=== PATIENT | female | born 1990 | race Caucasian/White ===

== ENCOUNTER 2021-02-21 03:46 | Emergency (ER) | payer SELFPAY ==
[2021-02-21] MEDS ORDERED: Acetaminophen 500 MG TAB ONE (04:08)
[2021-02-21] MEDS ORDERED: Boostrix 0.5 ML (Tdap) VIAL ONE (04:18)
[2021-02-21] MEDS ORDERED: Iopamidol-370 76% 500 ML 1 ML ONE (09:32)
== END 2021-02-21 06:20 | disposition home or self-care (01) ==
LOC: ERS 03:46
DX: S02.2XXA Fracture of nasal bones, initial encounter for closed fracture (principal); S00.83XA Contusion of other part of head, initial encounter; S10.93XA Contusion of unspecified part of neck, initial encounter; S40.212A Abrasion of left shoulder, initial encounter; S50.812A Abrasion of left forearm, initial encounter; Y04.2XXA Assault by strike against or bumped into by another person, initial encounter
CPT/HCPCS: 70450; 70486; 70498; 72125; 90471; 90715; Q9967